=== PATIENT | female | born 1985 | race Asian ===

== ENCOUNTER 2018-02-26 19:19 | Emergency (ER) | payer OTHER ==
[~2018-02-26] VITALS: Ht 165.1 cm; Wt 90.9 kg
[2018-02-26 19:32] VITALS: BP 145/91
== END 2018-02-26 20:56 | disposition home or self-care (01) ==
LOC: EMS 19:21
DX: L02.01 Cutaneous abscess of face (principal); R03.0 Elevated blood-pressure reading, without diagnosis of hypertension; F17.210 Nicotine dependence, cigarettes, uncomplicated; Z91.013 Allergy to seafood
CPT/HCPCS: 99283

== ENCOUNTER 2018-04-22 19:15 | Emergency (ER) | payer OTHER ==
[~2018-04-22] VITALS: Ht 165.1 cm; Wt 97.7 kg
[2018-04-22 23:07] VITALS: BP 128/66
== END 2018-04-22 23:10 | disposition home or self-care (01) ==
LOC: EMS 19:16
DX: R07.89 Other chest pain (principal); E78.00 Pure hypercholesterolemia, unspecified; F17.210 Nicotine dependence, cigarettes, uncomplicated; Z91.013 Allergy to seafood
CPT/HCPCS: 93005; 99284

== ENCOUNTER 2018-08-30 08:39 | Emergency (ER) | payer SELFPAY ==
[~2018-08-30] VITALS: Ht 165.1 cm; Wt 104.5 kg
[2018-08-30 09:09] LABS: GLUCOSE,POINT OF CARE 112 MG/DL (70-110)
[2018-08-30 11:02] VITALS: BP 133/84
== END 2018-08-30 11:03 | disposition home or self-care (01) ==
LOC: EMS 08:40
DX: S16.1XXA Strain of muscle, fascia and tendon at neck level, initial encounter (principal); E78.00 Pure hypercholesterolemia, unspecified; F17.210 Nicotine dependence, cigarettes, uncomplicated; Z91.013 Allergy to seafood; V49.40XA Driver injured in collision with unspecified motor vehicles in traffic accident, initial encounter; Y93.89 Activity, other specified; Y92.89 Other specified places as the place of occurrence of the external cause; Y99.8 Other external cause status